=== PATIENT | female | born 1960 | race Two or more races ===

== ENCOUNTER 2022-03-15 20:06 | Emergency (ER) | payer BC, SELFPAY ==
--- NOTE | ~2022-03-15 | XR_ITS ---
EXAMINATION: XR KNEE, LEFT CLINICAL INFORMATION: Left knee pain. COMPARISON: MRI of left knee 04/18/2011. Bilateral standing knees 08/09/2011. TECHNIQUE: Four views of the left knee. FINDINGS: No acute abnormality. No fracture. No dislocation. No joint effusion. Degenerative joint disease. There is joint narrowing of the femoral tibial joint, medial greater than lateral. Significant joint narrowing of the patellofemoral joint. There are marginal bone spurs at all 3 joint compartments. There is a bone spur versus nonunited old fracture fragment at the superior margin of the patella. XR/XR knee LT 4V IMPRESSION: 1. No acute abnormality. 2. Degenerative joint disease of the knee.
--- NOTE | ~2022-03-15 | CT_ITS ---
EXAMINATION: CT CHEST, ABDOMEN AND PELVIS WITH CONTRAST CLINICAL INFORMATION: Trauma COMPARISON: None TECHNIQUE: Multidetector volumetric imaging was performed of the chest, abdomen and pelvis following administration of 85 mL Ultravist 370 intravenous contrast. Oral contrast was not administered. Sagittal and coronal reformatted images were obtained on the technologist's workstation. This CT examination was performed using dose optimization techniques as appropriate, variously including the following: *Automated exposure control *Adjustment of mA and/or kV according to patient size (this includes techniques or standardized protocols for targeted exams where dose is matched to indication/reason for exam; i.e. extremities or head) *Use of iterative reconstruction technique DLP: 1327 mGy-cm FINDINGS: CHEST WALL: Unremarkable. ABDOMINAL AND PELVIC WALL: Small fat-containing umbilical hernia. AXILLA: No lymphadenopathy. MEDIASTINUM: Heart is normal in size. No mediastinal lymphadenopathy. No hilar lymphadenopathy. PLEURA: There is no pleural effusion. LIVER AND BILIARY TREE: Hypoattenuating hepatic parenchyma compatible with hepatic steatosis. GALLBLADDER: Cholelithiasis without evidence of acute cholecystitis. PANCREAS: Unremarkable SPLEEN: Unremarkable ADRENAL GLANDS: Unremarkable. KIDNEYS AND URETERS: Subcentimeter bilateral renal hypodensities too small to characterize. UPPER GASTROINTESTINAL TRACT: The stomach and duodenum are unremarkable. VASCULAR: Unremarkable. ABDOMINOPELVIC LYMPH NODES: No lymphadenopathy. FREE FLUID: No free fluid. BLADDER: Unremarkable PELVIC VISCERA: Endometrium measures 1 cm in thickness. LOWER GASTROINTESTINAL TRACT: Large and small bowel are unremarkable. Normal appendix. OSSEOUS STRUCTURES: Unremarkable. LUNGS: Few indeterminate scattered sub-5 mm solid pulmonary nodules for example a 3 mm solid right upper lobe pulmonary nodule, 12:131 and a 4 mm solid left lower lobe pulmonary nodule, 12:258. CT/CT abdomen pelvis w IV con IMPRESSION: Subcutaneous fat stranding in the soft tissues of the left flank may reflect a soft tissue hematoma. Otherwise, no findings of traumatic injury in the chest, abdomen or pelvis. Endometrium measures 1 cm in thickness. Recommend correlation with any symptoms of postmenopausal bleeding and gynecologic evaluation and management. Cholelithiasis without evidence of acute cholecystitis. Hepatic steatosis. Few sub-5 mm solid pulmonary nodules. Assuming patient has no history of malignancy, recommend follow-up per Fleischner Society recommendations. According to the UPDATED 2017 Fleischner Society recommendations, the advised followup imaging for solid nodules < 6 mm is: LOW RISK PATIENT: No routine follow up. HIGH RISK PATIENT: Optional CT at 12 months.
--- NOTE | ~2022-03-15 | CT_ITS ---
EXAMINATION: CT cervical spine wo IV con, CT head/brain wo IV con INDICATION INFORMATION: Reason for Exam Pain to neck status post fall COMPARISON: None TECHNIQUE: Separate noncontrast CT examinations of the head and cervical spine were performed. Coronal and sagittal images were created for each examination at the technologist workstation. This CT examination was performed using dose optimization techniques as appropriate, variously including the following: *Automated exposure control *Adjustment of mA and/or kV according to patient size (this includes techniques or standardized protocols for targeted exams where dose is matched to indication/reason for exam; i.e. extremities or head) *Use of iterative reconstruction technique DLP: 1043 mGy-cm FINDINGS: Head: No acute osseous or soft tissue abnormality. The mastoids are clear. Right maxillary sinus mucous retention cyst. There is no evidence of acute intracranial hemorrhage or territorial infarction. No abnormal mass effect or midline shift is seen. Beasley to white matter differentiation is well preserved. No extra-axial fluid collections are identified. No hydrocephalus. No significant volume loss. Chronic right subinsular and left posterior putaminal lacunar infarcts. Cervical spine: There is no evidence of acute cervical spine fracture. Vertebral bodies remain normal in height. Mild multilevel cervical spondylosis. No pre- or paravertebral soft tissue abnormality is identified. Visualized portions of the lung apices are unremarkable. The thyroid gland is unremarkable. CT/CT cervical spine wo IV con IMPRESSION: 1. No acute intracranial abnormality including hemorrhage, mass effect, hydrocephalus, or acute territorial edematous infarction. 2. Chronic right subinsular and left posterior putaminal lacunar infarcts 3. No cervical spine fracture or traumatic malalignment.
[2022-03-15 20:22] VITALS: BP 203/122; PULSE 127; RESP 26; TEMP 37.1; O2SAT 100; BMI 21.0
--- NOTE | 2022-03-15 20:27 | PC.NURSE ---
cms expert Karen notified about pt. Pt. is being brought back to ED bed 22 at this time via wheelchair
--- NOTE | 2022-03-15 20:36 | ECG_ITS ---
Test Reason : HYPERTENSIVE Blood Pressure : / mmHG Vent. Rate : 099 BPM Atrial Rate : 099 BPM P-R Int : 146 ms QRS Dur : 090 ms QT Int : 360 ms P-R-T Axes : 040 -35 036 degrees QTc Int : 462 ms Normal sinus rhythm Intra-ventricular conduction delay Possible Left atrial enlargement Left axis deviation Left ventricular hypertrophy ( R in aVL , Tyrese product ) Abnormal ECG No previous ECGs available Referred By: Roland Mehta Electronically Signed By:MORENITA VIEYRA MD
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
[2022-03-15 20:56] VITALS: RESP 17
[2022-03-15] MEDS: Morphine Sulfate 4 MG/ML CARTRIDGE IVPUSH (20:56)
[2022-03-15] MEDS: 0.9 % Sodium Chloride 1,000 ML 999 ML IV (20:57)
[2022-03-15 20:58] LABS: Basophils Absolute Auto 0.1 X10*3/uL (0.0-0.2); Basophils Percent Auto 0.6 % (0-2); Eosinophils Absolute Auto 0.3 X10*3/uL (0.0-0.4); Eosinophils Percent Auto 2.4 % (0-4); Hematocrit 40.4 % (37.0-47.0); Hemoglobin 13.6 g/dl (12.0-16.0); Imm Gran Abs Auto 0.05 X10*3/uL (0.00-0.03); Imm Gran Pct Auto 0.4 % (0.0-0.4); Lymphocytes Absolute Auto 2.3 X10*3/uL (1.2-4.9); MANUAL DIFF FLAG NO; Mean Corpuscular HGB Conc 33.7 g/dl (31.0-35.0); Mean Corpuscular Hemoglobin 29.4 pg (27.0-33.0); Mean Corpuscular Volume 87.4 fL (80.0-98.0); Mean Platelet Volume 9.5 fL (9.4-12.3); Monocytes Absolute Auto 0.5 X10*3/uL (0.1-1.2); Monocytes Percent Auto 3.4 % (2-11); Neutrophils Absolute Auto 10.3 x10*3/uL (2.0-8.3); Neutrophils Percent Auto 76.2 % (45-73); Platelet Count 258 X10*3/uL (160-400); Red Blood Count 4.62 X10*6/uL (4.20-5.50); Red Cell Distribution Width 12.8 % (11.0-16.0); White Blood Count 13.6 X10*3/uL (4.8-10.8)
[2022-03-15 20:59] VITALS: BP 180/108; PULSE 108; RESP 18; TEMP 36.7; O2SAT 100
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
--- NOTE | 2022-03-15 21:00 | PC.NURSE ---
Called [facility]'s Transfer Line at 2024 per Mary REAGAN.Provider.
[2022-03-15 21:03] LABS: Prothrombin Time 10.9 SEC (10.0-13.1)
[2022-03-15 21:12] LABS: Alanine Aminotransferase 22 U/L (0-31); Albumin Level 4.4 g/dL (3.5-5.0); Alkaline Phosphatase 128 U/L (39-117); Anion Gap 19 (12-20); Aspartate Amino Transferase 36 U/L (5-31); Bilirubin Total 0.4 mg/dL (0.0-1.0); Blood Urea Nitrogen 18 mg/dL (9-16); Carbon Dioxide 22 mmol/L (22-29); Chloride 102 mmol/L (96-108); Creatinine Clr Calc Pharmacy 63.2; Estimated Glomerular Filt Rate > 60; Ethanol 73 mg/dL; Glucose Random 98 mg/dL (60-115); Magnesium 1.8 mg/dL (1.6-2.6); Potassium 3.2 mmol/L (3.3-5.1); Sodium 140 mmol/L (135-145); Total Protein 7.8 g/dL (6.5-8.0)
[2022-03-15 21:17] LABS: COVID-19 Test Negative (Negative)
[2022-03-15 21:38] LABS: Appearance Urine Clear; Color Urine Yellow; Glucose Urine UA Negative (Negative); Leukocyte Esterase Urine Negative (Negative); Nitrite Urine Negative (Negative); Urine Blood Negative (Negative); Urine Ketones Negative (Negative); Urine Protein Negative (Neg-Trace)
[2022-03-15 21:47] VITALS: BP 160/117; PULSE 93; RESP 17; O2SAT 98
[2022-03-15] MEDS: Potassium Chloride ER 20 MEQ TAB.ER.PRT PO (21:48)
[2022-03-15 21:49] VITALS: RESP 17
[2022-03-15 21:50] LABS: Troponin-I High Sensitivity < 3.5 ng/L (<3.5-17.0)
[2022-03-15] MEDS: iohexoL 350 MG/ML 100 ML INFUS..BTL IV (22:19)
[2022-03-15 22:32] VITALS: BP 177/104; PULSE 102; RESP 15; TEMP 36.8; O2SAT 97
[2022-03-16] VITALS: BP 188/99; PULSE 102; RESP 17; O2SAT 97
[2022-03-16] MEDS: HYDROmorphone HCl 0.5 MG/0.5 ML SYRINGE IVPUSH (00:02)
[2022-03-16 01:31] VITALS: BP 172/72; PULSE 90; RESP 17; O2SAT 98
== END 2022-03-16 02:02 | disposition home or self-care (01) ==
PROVIDERS: Physician Assistant; Emergency Provider Emergency Medicine Emergency Medical Services
DX: S00.93XA Contusion of unspecified part of head, initial encounter (principal); R51.9 Headache, unspecified; M54.2 Cervicalgia; M25.512 Pain in left shoulder; M54.50 Low back pain, unspecified; R10.2 Pelvic and perineal pain; M25.562 Pain in left knee; I10 Essential (primary) hypertension; T20.27XA Burn of second degree of neck, initial encounter; T31.0 Burns involving less than 10% of body surface; X12.XXXA Contact with other hot fluids, initial encounter; Y93.9 Activity, unspecified; Y92.009 Unspecified place in unspecified non-institutional (private) residence as the place of occurrence of the external cause; Y99.9 Unspecified external cause status; W10.9XXA Fall (on) (from) unspecified stairs and steps, initial encounter; Z20.822 Contact with and (suspected) exposure to COVID-19; Z79.899 Other long term (current) drug therapy
CPT/HCPCS: 70450; 71260; 72125; 73564; 74177; 80053; 81003; 82077; 83735; 84484; 85025; 85610; 87635; 93005; 96361; 96374; 96375; 99284; J1170; J2270; Q9967

== ENCOUNTER 2024-12-10 11:13 | Emergency (ER) | payer BC, SELFPAY ==
--- NOTE | ~2024-12-10 | CT_ITS ---
EXAMINATION: CT ABDOMEN AND PELVIS WITH CONTRAST CLINICAL INFORMATION: Left lower quadrant pain, nausea. COMPARISON: March 15, 2022. TECHNIQUE: Multidetector volumetric images were obtained from the superior aspect of the liver through the pubic symphysis following administration 85 mL of Omnipaque 350 intravenous contrast. Sagittal and coronal reformatted images were obtained on the technologist's workstation. Oral contrast: No This CT examination was performed using dose optimization techniques as appropriate, variously including the following: *Automated exposure control *Adjustment of mA and/or kV according to patient size (this includes techniques or standardized protocols for targeted exams where dose is matched to indication/reason for exam; i.e. extremities or head) *Use of iterative reconstruction technique DLP: 473 mGy centimeter. FINDINGS: LUNG BASES: No acute airspace disease. LIVER, GALLBLADDER, AND BILIARY TREE: Liver measures 16 cm. No focal mass. Subcentimeter hypodensity right hepatic lobe. Portal vein and hepatic veins and intrahepatic portion of the IVC are patent. 1.3 cm calcification, intraluminal without pericholecystic fluid collection or gallbladder wall thickening in the gallbladder. No intrahepatic or extrahepatic biliary ductal dilatation. PANCREAS: No focal mass. No peripancreatic fluid collection. No main pancreatic ductal dilatation. SPLEEN: 7 cm. Subcentimeter hypodensity. ADRENAL GLANDS: No nodular lesion. KIDNEYS AND URETERS: No hydronephrosis. Probable 1 mm nonobstructing calculus right kidney. Small cyst, left kidney small exophytic cyst upper pole right kidney. Small cyst in the lower pole right kidney. BLADDER: Fluid-filled. GASTROINTESTINAL TRACT: Apparent concentric wall thickening with pericolonic edema pattern involving the descending colon and rectosigmoid colon. No pneumatosis intestinalis. No intestinal obstruction pattern. Appendix is normal. Terminal ileum is normal. No gross diverticula. No ascites. No fluid collection, peritoneal cavity. No pneumoperitoneum. ABDOMINAL WALL: Small fat-containing umbilical hernia. LYMPH NODES: No specific prominent retroperitoneum. VASCULAR: No calcified plaques. No aneurysm or dissection abdominal aorta. Calcified plaque descending thoracic aorta. PELVIC VISCERA: Not enlarged or gross masses. OSSEOUS STRUCTURES: A S-shaped curvature of the thoracolumbar spine. Multilevel thoracolumbar spondylosis. Grade 1 anterolisthesis L4-5. Degenerative changes in the coxofemoral joints and sacroiliac joints. Punctate less than 4 mm blastic lesions. Bony pelvis probably bony island. CT/CT abdomen pelvis w IV con IMPRESSION: Consider acute colitis, left hemicolon without intestinal obstruction pattern or peritoneal abscess. Underlying neoplasm cannot be excluded. Cholelithiasis. Bilateral renal cysts. Probable nonobstructing nephrolithiasis, right kidney. Fleischner guidelines were followed. Electronically signed by: Neeraj Jacobo MD 12/10/2024 12:55 PM EDT
[2024-12-10 11:15] VITALS: BP 211/93; PULSE 77; RESP 16; TEMP 36.1; O2SAT 99; BMI 25.7
--- NOTE | 2024-12-10 11:19 | ED.GENADULT ---
HPI - General Adult General Chief complaint: Abdominal Pain Stated complaint: Abd pain Time Seen by Provider: 12/10/24 11:19 Source: patient and old records reviewed Mode of arrival: ambulatory Limitations: no limitations History of Present Illness ED Provider: YARITZA ROBERTS narrative: 64 yo female not compliant with HTN needs to pick it up at pharmacy, normal routine colonoscopies, L oophorectomy in her 20s who presents with c/o lower abdominal pain, nausea, constipation but passing gas. She has never had diverticulitis before. She denies dysuria. No fevers reported. No recent change in diet she eats very healthy. Gets colonoscopy every 10 years at [facility] states she isn't sure when her last one was but it was normal MD complaint: abdominal pain Onset (ago): day(s) (3) Location: abdomen Radiation: non-radiation Severity: severe Quality: aching Pain Consistency: constant Relieving factors: none Exacerbating factors: movement Associated symptoms: loss of appetite, malaise and nausea/vomiting Related Data Previous Rx's ?Medication ?Instructions ?Recorded bacitracin 500 unit/gram topical 1 appl topical TID #14 grams 03/16/22 ointment morphine 15 mg immediate release 15 mg PO Q8H PRN pain #14 tabs 03/16/22 tablet non-adherent bandage 1/2 X 144 #12 ea 03/16/22 polyethylene glycol 3350 17 17 g PO DAILY PRN constipation 12/10/24 gram/dose oral powder (Miralax) #119 grams Allergies Allergy/AdvReac Type Severity Reaction Status Date / Time No Known Allergies Allergy Verified 12/10/24 11:20 Review of Systems Review of Systems: Constitutional : No Weight loss, No Fever, No Chills ENT/Mouth : No sore throat, No Rhinorrhea Eyes: No Swelling, No Redness Cardiovascular : No Chest Pain, No SOB, NoEdema Respiratory : No Cough, No Sputum, No Wheezing Gastrointestinal : Positive Nausea, no Vomiting, no Diarrhea, positive abdominal Pain, No Hematochezia, No Melena, pos constipation Genitourinary : No Dysuria, No Urinary Frequency, No Hematuria, No Urgency Musculoskeletal : No joint pain, No Myalgias, No Joint Swelling Skin : No Skin Lesions, No rash Neuro : No Weakness, No Numbness, No Dizziness, No Headache All other systems reviewed and are negative. [facility]LY [facility] Past Medical History Attestation statement: The following information was validated with the patient. Source: old records reviewed Medical History (Updated 12/10/24 @ 15:04 by Mica Campo DO) HTN (hypertension) Surgical History (Updated 12/10/24 @ 11:39 by Mica Campo DO) S/P left oophorectomy Social History Social History (Updated 12/10/24 @ 11:39 by Mica Campo DO) Patient Tobacco Use Status: Never used Tobacco Advance Directives: No Advance Directives Information Provided: Yes Do you have a plan to hurt others: No Plan Physical Exam ED Vital Signs: Vital Signs - 24 hr 12/10/24 11:15 12/10/24 13:34 12/10/24 14:12 Temperature 96.9 F 98.3 F Pulse Rate 77 56 Respiratory Rate 16 14 Blood Pressure 211/93 H 165/73 H 165/73 H Pulse Oximetry 99 99 Oxygen Delivery Method Room Air Room Air BMI result Body Mass Index 25.7 Appearance: Alert. Oriented X3. appears uncomfortable mild acute distress. Eyes: Pupils equal, round and reactive to light. ENT: Pharynx normal. Neck: Normal inspection. Neck supple. CVS: Normal heart rate and rhythm. Pulses normal. Respiratory: No respiratory distress. Breath sounds normal. Abdomen: Soft but moderate ttp with some guarding. Skin: Skin warm and dry. Normal skin color. Extremities: No lower extremity edema. Neuro: Oriented X 3. No motor deficit. No sensory deficit. CN2-12 intact Course Course Course Narrative: RME, this is a rapid medical exam performed by Cesar Ruggiero please refer to primary provider for complete H&P- 64 year old female presents for evaluation of abdominal pain since last with associated black stool. She does admit that she took some Pepto-Bismol last night. We will check basic labs and urinalysis. The patient was quite anxious about her black stool. Her blood pressure was elevated she reports she has been compliant with her medications. Denies any chest pain. Reevaluation(s) Reevaluation #1: colitis on CT scan but no wbc count and no diarrhea she still has pain on exam does not want narcotics no bloody stools reported, will obtain lactic acid Medications Administered Discontinued Medications Generic Name Dose Route Start Last Admin Trade Name Freq PRN Reason Stop Dose Admin Amlodipine Besylate 5 mg 07/11/25 13:25 12/10/24 14:12 Amlodipine Besylate 5 Mg Tablet PO 12/10/24 13:26 5 mg ONCE ONE Administration Protocol Collagenase 1 appl 12/10/24 13:53 12/10/24 14:17 Collagenase Clostridium Hist. 30 Gm Tube TOPICAL 12/10/24 13:54 Not Given ONCE ONE Protocol Acetaminophen 1,000 mg in 100 mls @ 400 mls/hr 12/10/24 13:56 12/10/24 14:11 Ofirmev IV 12/10/24 14:10 400 mls/hr ONCE ONE Administration Iohexol 100 ml 12/10/24 12:28 12/10/24 12:28 Iohexol 350 Mg/Ml 100 Ml Infus..Btl IV 12/10/24 12:29 85 ml ONCE ONE Administration Ketorolac Tromethamine 15 mg 12/10/24 11:28 12/10/24 12:01 Ketorolac Tromethamine 15 Mg/Ml Vial IVPUSH 12/10/24 11:29 15 mg ONCE ONE Administration Morphine Sulfate 4 mg 12/10/24 11:28 12/10/24 12:02 Morphine Sulfate 4 Mg/Ml Cartridge IVPUSH 12/10/24 11:29 Not Given ONCE ONE Protocol Ondansetron HCl 4 mg 12/10/24 11:28 12/10/24 12:02 Ondansetron Hcl 4 Mg/2 Ml Vial IVPUSH 12/10/24 11:29 4 mg ONCE ONE Administration Medical Decision Making Medical Decision Making MDM Narrative: 64 yo female with PMH of HTN (not compliant with meds), L ovarian removal here with c/o constipation, + flatus and nausea with moderate abdominal ttp at this time will obtain labs, UA, CT scan for possible diverticular disease, renal colic. I have started her on IV toradol and IV morphine for pain. Hx of normal routine colonoscopy. HTN could be due to pain or non compliance. If it remains high will start on her amlodipine. Differential Diagnosis Differential Diagnoses: The differential diagnosis associated with the presentation includes constipation, renal colic, diverticular disease Admission/Observation Consideration of admission/observation: Escalation of care including admission/observation considered labs reassuring, pain improved, lactic acid negative Consult Healthcare Provider Management of the patient was discussed with: Deputy Jailer message sent to jordana Fan and precautions Lab Data [facility] Lab Attestation statement: I reviewed the patient's lab results. 12/10/24 11:57 12/10/24 11:57 Labs: Lab Results 12/10/24 12/10/24 12/10/24 Range/Units 11:52 11:57 13:47 WBC 8.3 (4.8-10.8) X10*3/uL RBC 4.42 (4.20-5.50) X10*6/uL Hgb 12.9 (12.0-16.0) g/dl Hct 39.7 (37.0-47.0) % MCV 89.8 (80.0-98.0) fL MCH 29.2 (27.0-33.0) pg MCHC 32.5 (31.0-35.0) g/dl RDW 13.2 (11.0-16.0) % Plt Count 283 (160-400) X10*3/uL MPV 9.5 (9.4-12.3) fL Immature Gran % (Auto) 0.5 H (0.0-0.4) % Neut % (Auto) 71.5 (45-73) % Lymph % (Auto) 22.3 (20-40) % Elk % (Auto) 3.9 (2-11) % Eos % (Auto) 1.2 (0-4) % Baso % (Auto) 0.6 (0-2) % Lymph # (Auto) 1.8 (1.2-4.9) X10*3/uL [place] # (Auto) 0.3 (0.1-1.2) X10*3/uL Eos # (Auto) 0.1 (0.0-0.4) X10*3/uL Baso # (Auto) 0.1 (0.0-0.2) X10*3/uL Abs Immat Gran (auto) 0.04 H (0.00-0.03) X10*3/uL Absolute Neuts (auto) 5.9 (2.0-8.3) x10*3/uL Absolute Nucleated RBC 0.000 (0.0-0.012) X10*3/uL Nucleated RBC % (auto) 0.0 (0.0-0.2) /100WBC Sodium 141 (135-145) mmol/L Potassium 3.7 (3.3-5.1) mmol/L Chloride 105 (96-108) mmol/L Carbon Dioxide 29 (22-29) mmol/L Anion Gap 11 L (12-20) BUN 14 (9-16) mg/dL Creatinine 0.57 (0.5-1.4) mg/dL Estim Creat Clear Calc 93.2 Estimated GFR > 60 Random Glucose 73 (60-115) mg/dL Lactic Acid 0.5 (0.5-2.0) mmol/L Calcium 9.0 (8.4-10.2) mg/dL Total Bilirubin 0.4 (0.0-1.0) mg/dL AST 33 H (5-31) U/L ALT 37 H (0-31) U/L Alkaline Phosphatase 93 (39-117) U/L Total Protein 7.0 (6.5-8.0) g/dL Albumin 4.0 (3.5-5.0) g/dL Lipase 19 (8-78) U/L Urine Color Yellow Urine Appearance Clear Urine pH 5.5 (5.0-9.0) Ur Specific [place] 1.010 (1.005-1.025) Urine Protein Negative (Neg-Trace) mg/dL Urine Glucose (UA) Negative (Negative) mg/dL Urine Ketones 40 (Negative) mg/dL Urine Blood Negative (Negative) Urine Nitrite Negative (Negative) Ur Leukocyte Esterase Negative (Negative) Urine RBC 0-2 (0-2) /HPF Urine WBC 0-5 (0-5) /HPF Ur Squamous Epith Cells 0-2 (0-2) /HPF Urine Bacteria None Seen (None Seen) Hyaline Casts 0-2 (0-2) /LPF Independent Interpretation I performed an independent interpretation of an: EKG and CT Scan (+ colitis) Interpretation: Rate: 59 Rhythm: sinus bradycardia [place]: left Normal P waves. Normal ANH. Normal QRS complex. ST T wave : normal no SUNSHINE qTC: 409 prior studies: no acute ischemia The study has been interpreted contemporaneously by me. . Radiology Impression Discussion of test interpretation with radiology: I have reviewed the radiologist's reading. External Record Review External record reviewed: Outpatient record Prescription Management I considered prescription management with: Other Discharge Plan Discharge Clinical Impression: Colitis, Constipation Patient Disposition: Home, Self-Care Instructions: Constipation (ED), Colitis (ED) Additional Instructions: gabe enother dose of miralax tonight when you get home monitor your symptoms - return for bloody stools, fevers, worsening pain or any other concerns bland diet for 48 hours and avoid salads you should follow up with your GI doctor as soon as possible and your primary care doctor next week Prescriptions: New polyethylene glycol 3350 [Miralax] 17 gram/dose powder 17 g PO DAILY PRN (Reason: constipation) Qty: 119 0RF No Action bacitracin 500 unit/gram ointment 1 appl topical TID Qty: 14 0RF (DME) non-adherent bandage 1/2 X 144 bandage See Rx Instructions .Route Qty: 12 0RF Rx Instructions: As directed morphine 15 mg tablet 15 mg PO Q8H PRN (Reason: pain) Qty: 14 0RF Rx Instructions: Partial Fill upon patient request. Print Language: [place] Island[place]
--- NOTE | 2024-12-10 11:23 | ECG_ITS ---
Test Reason : ABD PAIN Blood Pressure : */* mmHG Vent. Rate : 59 BPM Atrial Rate : 59 BPM P-R Int : 146 ms QRS Dur : 94 ms QT Int : 414 ms P-R-T Axes : 0 -30 25 degrees QTcB Int : 409 ms Sinus bradycardia Left axis deviation Moderate voltage criteria for LVH, may be normal variant ( R in aVL , Tyrese product ) Cannot rule out Anterior infarct , age undetermined Abnormal ECG When compared with ECG of 15-Mar-2022 21:22, Vent. rate has decreased by 40 bpm QT has shortened Referred By: Gautam Ruggiero Electronically Signed By: Thomas Ventura
[2024-12-10 12:03] LABS: MANUAL DIFF FLAG NO
[2024-12-10 12:05] LABS: Appearance Urine Clear; Glucose Urine UA Negative (Negative); PH 5.5 (5.0-9.0); Specific Gravity - Urine 1.010 (1.005-1.025)
[2024-12-10 12:14] LABS: Hematocrit 39.7 % (37.0-47.0); Hemoglobin 12.9 g/dl (12.0-16.0); Imm Gran Abs Auto 0.04 X10*3/uL (0.00-0.03); Imm Gran Pct Auto 0.5 % (0.0-0.4); Lymphocytes Absolute Auto 1.8 X10*3/uL (1.2-4.9); Mean Corpuscular HGB Conc 32.5 g/dl (31.0-35.0); Mean Corpuscular Hemoglobin 29.2 pg (27.0-33.0); Mean Corpuscular Volume 89.8 fL (80.0-98.0); NRBC Abs Auto 0.000 X10*3/uL (0.0-0.012); NRBC Pct Auto 0.0 /100WBC (0.0-0.2); Platelet Count 283 X10*3/uL (160-400); Red Blood Count 4.42 X10*6/uL (4.20-5.50); White Blood Count 8.3 X10*3/uL (4.8-10.8)
[2024-12-10 12:18] LABS: Alanine Aminotransferase 37 U/L (0-31); Albumin Level 4.0 g/dL (3.5-5.0); Alkaline Phosphatase 93 U/L (39-117); Anion Gap 11 (12-20); Aspartate Amino Transferase 33 U/L (5-31); Blood Urea Nitrogen 14 mg/dL (9-16); Calcium 9.0 mg/dL (8.4-10.2); Carbon Dioxide 29 mmol/L (22-29); Chloride 105 mmol/L (96-108); Creatinine Clr Calc Pharmacy 93.2; Estimated Glomerular Filt Rate > 60; Lipase 19 U/L (8-78); Potassium 3.7 mmol/L (3.3-5.1); Sodium 141 mmol/L (135-145); Total Protein 7.0 g/dL (6.5-8.0)
[2024-12-10] MEDS: iohexoL 350 MG/ML 100 ML INFUS..BTL IV (12:28)
[2024-12-10 13:34] VITALS: BP 165/73; PULSE 56; RESP 14; TEMP 36.8; O2SAT 99
[2024-12-10 14:12] VITALS: BP 165/73
[2024-12-10 15:35] VITALS: BP 156/72; PULSE 82; RESP 16; TEMP 36.8; O2SAT 95
== END 2024-12-10 15:35 | disposition home or self-care (01) ==
PROVIDERS: Physician Assistant; Emergency Provider Emergency Medicine; PCP Internal Medicine
DX: K52.9 Noninfective gastroenteritis and colitis, unspecified (principal); K59.00 Constipation, unspecified; R11.2 Nausea with vomiting, unspecified; I10 Essential (primary) hypertension; Z79.899 Other long term (current) drug therapy
CPT/HCPCS: 36415; 74177; 80053; 81001; 83605; 83690; 85025; 87040; 93005; 96374; 96375; 99284; J0131; J1885; J2405; Q9967

== ENCOUNTER → 2024-12-10 11:23 | Outpatient (BNV) | payer BC, SELFPAY | PROVIDERS: Emergency Provider Emergency Medicine; PCP Internal Medicine; Visit Provider Internal Medicine Cardiovascular Disease | DX: R00.1 Bradycardia, unspecified (principal) | CPT/HCPCS: 93010 ==

== ENCOUNTER → 2024-12-10 11:28 | Outpatient (BNV) | payer BC, SELFPAY | PROVIDERS: Emergency Provider Emergency Medicine; PCP Internal Medicine; Visit Provider Radiology Diagnostic Radiology | DX: K80.20 Calculus of gallbladder without cholecystitis without obstruction (principal); N28.1 Cyst of kidney, acquired | CPT/HCPCS: 74177 ==